=== PATIENT | female | born 1955 | race Caucasian/White ===

== ENCOUNTER → 2016-05-09 | Outpatient (CLI) | payer OTHER ==
[~2016-05-09] MED LIST: ESTRTAB12
== END ==
LOC: CLAB 16:03
PROVIDERS: ATTEND Specialist
DX: B18.2 Chronic viral hepatitis C (principal); D69.6 Thrombocytopenia, unspecified; E78.4 Other hyperlipidemia; E55.9 Vitamin D deficiency, unspecified; Z79.899 Other long term (current) drug therapy
CPT/HCPCS: 36415; 82140

== ENCOUNTER 2017-04-11 13:22 | Emergency (ER) | payer OTHER ==
[~2017-04-11] VITALS: Ht 160 cm; Wt 75.0 kg
[2017-04-11 13:24] VITALS: BP 136/71; PULSE 98; RESP 16; TEMP 98.2; O2SAT 99
--- NOTE | 2017-04-11 14:15 | PD ---
HPI . Flulike symptoms Chief Complaint: GI Complaint Time Seen by Provider: 14:06 Travel History International Travel<30 days: No Contact w/Intl Traveler<30days: No Traveled to known affect area: No History of Present Illness HPI This patient presents with a 3 day history of flulike symptoms. She is complaining with congestion, cough, chest discomfort, loose stools. She has been taking Benadryl and Robitussin with some relief of her symptoms. She states that she is able to sleep with these medications. She states that there was nothing new or different today that made her come to the hospital. She is not concerned about anything in particular such as pneumonia. She states that she presents to us because she works here and she needs a note for work. PFSH Past Medical History Cardiovascular Problems: Yes ("2 BAD HEART VALVES") Diminished Hearing: No Hepatitis: Yes (UNSURE WHAT TYPE) ?: Not Menopausal: Yes : 4 Para: 1 Past Surgical History Gynecologic Surgery: Yes (EMBOLIZATION OF UTERUS) Hysterectomy: Yes Other Surgery: Yes (UTERINE EMBOLISM) Social History Alcohol Use: No Tobacco Use: No Substance Use: No Allergies-Medications (Allergen,Severity, Reaction): Coded Allergies: No Known Allergies (Verified , 06/10/13) Reported Meds & Prescriptions Reported Meds & Active Scripts Active Reported Estroven Maximum Strength (Nutritional Supplements) Max Str Tab Review of Systems Except as stated in HPI: all other systems reviewed are Neg General / Constitutional: Positive: Fever, Chills HENT: Positive: Congestion Cardiovascular: Positive: Chest Pain or Discomfort Respiratory: Positive: Cough Gastrointestinal: Positive: Diarrhea, No: Nausea, Vomiting Physical Exam Narrative Vital Signs Date Time Temp Pulse Resp B/P (MAP) Pulse Ox O2 Delivery O2 Flow Rate FiO2 04/11/17 13:24 98.2 98 16 136/71 (92) 99 GENERAL: Awake and alert and in no acute distress. SKIN: Warm and dry. Good color and turgor. HEAD: Normocephalic/atraumatic. EYES: Pupils are equal. Extraocular movements are intact. ENT: Oropharynx has some postnasal drip. NECK: Normal range of motion. Supple. No cervical lymphadenopathy. CARDIOVASCULAR: Regular rate and rhythm. Heart sounds are normal. RESPIRATORY: Nonlabored respirations. She has some scattered rhonchi compatible with cigarette smoking. MUSCULOSKELETAL: Atraumatic. NEUROLOGICAL: Nonfocal. PSYCHIATRIC: Appropriate mood and affect. Data Data Last Documented VS Vital Signs Date Time Temp Pulse Resp B/P (MAP) Pulse Ox O2 Delivery O2 Flow Rate FiO2 04/11/17 13:24 98.2 98 16 136/71 (92) 99 MDM Medical Decision Making Medical Screen Exam Complete: Yes Emergency Medical Condition: Yes Differential Diagnosis Differential diagnosis includes but is not limited to viral respiratory illness , bronchitis, pneumonia, allergies, CHF, asthma/COPD. Narrative Course This patient presents with flulike symptoms. She's been sick for 3 days so she is outside of the window for Tamiflu. She will be treated symptomatically. Diagnosis Primary Impression: Viral syndrome Additional Instructions: I recommend the use of a Neti Pot. You may use a nasal spray such as Afrin for up to 3 days as needed for nasal congestion. You may take an sirc-ghi-qhabwfa antihistamine such as Zyrtec, Anna or Claritin as needed for runny secretions. You may take pseudoephedrine as needed for congestion. You will need to sign for this at the pharmacy. You may take plain Mucinex, 1200 mg twice a day as needed for thick secretions. You may take a cough syrup such as Delsym as needed for cough. Motrin as needed for fever and body aches. Throat lozenges/sprays as needed for sore throat. Warm salt water gargles for sore throat. Hot tea with lemon and honey also helps soothe a sore throat. Disposition: 01 DISCHARGE HOME Condition: Stable Nadiya Richter MD Apr 11, 2017 14:15
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
--- NOTE | 2017-04-11 15:34 | RADRPT ---
EXAM DATE/TIME: 04/11/2017 14:57 [facility] COMPARISON: No previous studies available for comparison. INDICATIONS : Left breast pain. MEDICAL HISTORY : None. SURGICAL HISTORY : None. ENCOUNTER: Initial ACUITY: 1 day PAIN SCORE: 4/10 LOCATION: Left chest FINDINGS: A single view of the chest demonstrates the lungs to be symmetrically aerated without evidence of mas s, infiltrate or effusion. The cardiomediastinal contours are unremarkable. Osseous structures are intact. CONCLUSION: The lungs are clear. Valentino Gallegos MD on April 11, 2017 at 15:33 Board Certified Radiologist. This report was verified electronically.
== END 2017-04-11 16:19 | disposition home or self-care (01) ==
LOC: NEPD 13:22
DX: S20.219A Contusion of unspecified front wall of thorax, initial encounter (principal); Y04.8XXA Assault by other bodily force, initial encounter
CPT/HCPCS: 71045; 99283

== ENCOUNTER 2017-05-23 20:08 | Emergency (ER) | payer OTHER ==
[~2017-05-23] VITALS: Ht 165.1 cm; Wt 72.0 kg
[2017-05-23 21:22] VITALS: BP 142/70; PULSE 116; RESP 16; TEMP 99.9; O2SAT 98
--- NOTE | 2017-05-23 22:03 | PD ---
HPI Chief Complaint: Cold / Flu Symptoms Time Seen by Provider: 22:01 Travel History International Travel<30 days: No Contact w/Intl Traveler<30days: No Traveled to known affect area: No History of Present Illness HPI 62-year-old female came to the emergency room with history of cough that has been going on for past 3 weeks. Patient says that now it has started to turn color and is greenish. She is also started to get fever for past couple days. Patient's temperature was 99.9 in triage. She was slightly tachycardic. Patient however was awake and answering questions appropriately. She was on her cell phone when I came in the room to talk to her. She says she cannot stop coughing and her rib cage and abdomen hurts from that. She has been a smoker but has been unable to smoke in past few days and is thinking of quitting. No known sick contacts. [facility] Past Medical History Narrative Medical List of her past medical, surgical, social and family history reviewed from the nursing note. Cardiovascular Problems: Yes ("2 BAD HEART VALVES") Coronary Artery Disease: Yes ("TWO BAD HEART VALVES") Diminished Hearing: No Hepatitis: Yes (UNSURE WHAT TYPE) Menopausal: Yes : 4 Para: 1 Past Surgical History Gynecologic Surgery: Yes (EMBOLIZATION OF UTERUS) Hysterectomy: Yes Other Surgery: Yes (UTERINE EMBOLISM) Social History Alcohol Use: No Tobacco Use: No Substance Use: No Allergies-Medications (Allergen,Severity, Reaction): Coded Allergies: No Known Allergies (Verified Adverse Reaction, Unknown, 05/23/17) Comments No known drug allergies. Reported Meds & Prescriptions Reported Meds & Active Scripts Active Ventolin Hfa 18 GM Inh (Albuterol Sulfate) 90 Mcg/Act Aer 2 Puff INH Q4-6H PRN Levaquin (Levofloxacin) 500 Mg Tablet 500 Mg PO DAILY 10 Days Narrative Medication List of her home medications reviewed from the nursing note. Review of Systems Except as stated in HPI: all other systems reviewed are Neg General / Constitutional: Positive: Fever Respiratory: Positive: Cough Physical Exam Narrative GENERAL: Awake, alert, mild distress SKIN: Focused skin assessment warm/dry. HEAD: Atraumatic. Normocephalic. EYES: Pupils equal and round. No scleral icterus. No injection or drainage. ENT: No nasal bleeding or discharge. Mucous membranes pink and moist. NECK: Trachea midline. No JVD. CARDIOVASCULAR: Regular rate and rhythm. No murmur appreciated. RESPIRATORY: No accessory muscle use. Coarse breath sounds bibasilar GASTROINTESTINAL: Abdomen soft, non-tender, nondistended. Hepatic and splenic margins not palpable. MUSCULOSKELETAL: No obvious deformities. No clubbing. No cyanosis. No edema. NEUROLOGICAL: Awake and alert. No obvious cranial nerve deficits. Motor grossly within normal limits. Normal speech. PSYCHIATRIC: Appropriate mood and affect; insight and judgment normal. Data Data Last Documented VS Vital Signs Date Time Temp Pulse Resp B/P (MAP) Pulse Ox O2 Delivery O2 Flow Rate FiO2 05/23/17 23:05 05/23/17 22:55 108 18 100 Room Air 05/23/17 21:22 99.9 Orders Orders Chest, Pa & Lat (05/23/17 ) Albuterol-Ipratropium Neb (Duoneb Neb) (05/23/17 22:15) Levofloxacin (Levaquin) (05/24/17 09:00) Ed Discharge Order (05/23/17 22:56) [facility] Medical Decision Making Medical Screen Exam Complete: Yes Emergency Medical Condition: Yes Medical Record Reviewed: Yes Differential Diagnosis Pneumonia, bronchitis Narrative Course 11:01 PM patient was given a DuoNeb inhaler. Chest x-ray has been read by the radiologist as bronchopneumonia. I have given her a dose of Levaquin here. I am comfortable discharging her home since she is saturating 97-100% on room air. Heart rate has come down to 106. I discussed this finding and the plan with her. I have recommended smoking cessation. Procedures EKG Prior to Arrival: No Diagnosis Primary Impression: Pneumonia Qualified Codes: J18.1 - Lobar pneumonia, unspecified organism Additional Impression: Needs smoking cessation education Referrals: Primary Care Physician 3 days Additional Instructions: You should not be smoking. Take the medication as per the prescription direction. Return to the ER if condition worsens any other new concerns. Otherwise follow-up with your primary care. Use the inhaler 2 puffs every 6 hours for the cough to symptoms get better. Med/Other Pt SpecificInfo: Prescription(s) given Scripts Albuterol 18 GM Inh (Ventolin Hfa 18 GM Inh) 90 Mcg/Act Aer 2 PUFF INH Q4-6H Y for SHORTNESS OF BREATH, #1 INHALER 0 Refills Prov: Justin Mills MD 05/23/17 Levofloxacin (Levaquin) 500 Mg Tablet 500 MG PO DAILY for Infection for 10 Days, #10 TAB 0 Refills Prov: Justin Mills MD 05/23/17 Disposition: 01 DISCHARGE HOME Condition: Stable Justin Mills MD May 23, 2017 22:03
[2017-05-23] MEDS ORDERED: RESP: ALBUTEROL 2.5 MG/IPRATROPIUM 0.5 MG NEB (SCH) NEB ONE (22:15)
--- NOTE | 2017-05-23 22:44 | RADRPT ---
EXAM DATE/TIME: 05/23/2017 22:19 [facility] COMPARISON: No previous studies available for comparison. INDICATIONS : Cough and chest pain. MEDICAL HISTORY : None. SURGICAL HISTORY : None. ENCOUNTER: Initial ACUITY: 1 month PAIN SCORE: 9/10 LOCATION: Bilateral chest FINDINGS: PA and lateral views of the chest demonstrate basilar airspace disease most extra-stiff bronchopneumo milton. No effusion. Heart size normal. CONCLUSION: 1. Patchy bibasal air space disease most characteristic of bronchopneumonia. Benito Gonzalez MD on May 23, 2017 at 22:41 Board Certified Radiologist. This report was verified electronically.
[2017-05-23 22:55] VITALS: BP 119/57; PULSE 108; RESP 18; O2SAT 100
[2017-05-23] MEDS ORDERED: LEVA500T33 PO (22:56)
[2017-05-23] MEDS ORDERED: VENTAER INH (23:02)
[2017-05-24] MEDS ORDERED: LEVOFLOXACIN 500 MG TAB PO SCH (09:00)
== END 2017-05-24 01:12 | disposition home or self-care (01) ==
LOC: NEPD 20:08
DX: J18.1 Lobar pneumonia, unspecified organism (principal); I25.10 Atherosclerotic heart disease of native coronary artery without angina pectoris; K75.9 Inflammatory liver disease, unspecified; F17.200 Nicotine dependence, unspecified, uncomplicated
CPT/HCPCS: 71046; 94664; 99283

== ENCOUNTER 2017-07-27 12:02 | Emergency (ER) | payer OTHER ==
[~2017-07-27] VITALS: Ht 162.6 cm; Wt 60.0 kg
[~2017-07-27 12:02] MED LIST changes: -ESTRTAB12; +LEVA500T33 PO; +VENTAER INH
[2017-07-27 12:46] VITALS: BP 124/77; TEMP 98; O2SAT 98
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
== END 2017-07-27 13:46 | disposition left against medical advice (07) ==
LOC: NEPD 12:02
DX: Z76.89 Persons encountering health services in other specified circumstances (principal)
CPT/HCPCS: 99281